=== PATIENT | male | born 1985 | race Caucasian/White ===

== ENCOUNTER 2017-07-16 15:40 | Emergency (ER) | payer BC ==
--- NOTE | 2017-07-16 16:09 | EDM.PDOC ---
ED HPI GENERAL MEDICAL PROBLEM - General Chief Complaint: Back Pain or Injury Stated Complaint: HIGH BLOOD PRESSURE Time Seen by Provider: 07/16/17 15:48 Source of Information: Reports: Patient History Limitations: Reports: No Limitations - History of Present Illness INITIAL COMMENTS - FREE TEXT/NARRATIVE: 31 y/o M sent from walk in clinic for painful rash on L chest/back. Started about 3-4 days ago. Located on left mid chest area and wraps around to his back. No provoking factor. No hx similar symptoms. No additional rash. Rash is painful/burning. Notices it more at night. During the day the pain is tolerable. Worse with touch. No fever. Also concerned about his blood pressure being high. He's supposed to be taking lisinopril but hasn't been taking it regularly. Apparently clinic provider was concerned about his high blood pressure and wanted this evaluated in the ED. No chest pain (apart from that which is localized to rash), SOB, or neurological symptoms. Back Pain Score (Numeric/FACES): 3 - Related Data Allergies Allergy/AdvReac Type Severity Reaction Status Date / Time No Known Allergies Allergy Verified 07/16/17 15:53 Home Meds: Home Meds Ibuprofen 800 mg PO TID PRN #40 tablet 07/16/17 [Rx] Lisinopril 10 mg PO DAILY 07/16/17 [History] Lisinopril 20 mg PO DAILY #30 tablet 07/16/17 [Rx] PARoxetine [Paxil] 20 mg PO DAILY 07/16/17 [History] oxyCODONE 5 mg PO QID PRN #18 tab 07/16/17 [Rx] valACYclovir HCl [Valacyclovir] 1,000 mg PO TID #21 tablet 07/16/17 [Rx] Past Medical History Cardiovascular History: Reports: Hypertension Psychiatric History: Reports: Anxiety, Panic Attack - Infectious Disease History Infectious Disease History: Reports: Chicken Pox - Past Surgical History GI Surgical History: Reports: Hernia Repair/Other Male Surgical History: Reports: Other (See Below) Other Male Surgeries/Procedures: donated left kidney 2005 Social & Family History - Tobacco Use Smoking Status *Q: Former Smoker Used Tobacco, but Quit: Yes Month/Year Tobacco Last Used: 4 months ago - Caffeine Use Caffeine Use: Reports: Coffee - Recreational Drug Use Recreational Drug Use: No ED ROS GENERAL - Review of Systems Review Of Systems: See Below Constitutional: Denies: Fever HEENT: Reports: No Symptoms Respiratory: Denies: Shortness of Breath Cardiovascular: Denies: Chest Pain Endocrine: Reports: No Symptoms GI/Abdominal: Denies: Abdominal Pain Skin: Reports: Rash Neurological: Denies: Confusion Psychiatric: Reports: No Symptoms ED EXAM, UPPER BACK/NECK PAIN - Physical Exam Exam: See Below Exam Limited By: No Limitations General Appearance: Alert, WD/WN, No Apparent Distress Eye Exam: Bilateral Eye: Normal Inspection Ears Exam: Normal External Exam Nose Exam: Normal Inspection Throat/Mouth Exam: Normal Inspection, Normal Voice, No Airway Compromise Head Exam: Atraumatic, Normocephalic Cardiovascular/Respiratory: Regular Rate, Rhythm, No M/R/G, Normal Peripheral Pulses, Normal Breath Sounds, No Respiratory Distress Back Exam: Other (+zoster-like rash on L anterior chest wall and L back area approx T5 distribution with confluent erythema and few scattered vesicles ) Neurologic: No Motor/Sensory Deficits, Normal Mood/Affect, Oriented x 3 Course - Vital Signs Last Recorded V/S: Last Vital Signs Temp 36.6 C 07/16/17 15:49 Pulse 111 H 07/16/17 15:49 Resp 18 07/16/17 15:49 BP 177/142 H 07/16/17 15:49 Pulse Ox 96 07/16/17 15:49 - Orders/Labs/Meds Meds: Medications Discontinued Medications Generic Name Dose Route Start Last Admin Trade Name Freq PRN Reason Stop Dose Admin Valacyclovir HCl 1,000 mg 07/16/17 16:15 Valtrex PO DAILY CHARLI Valacyclovir HCl Confirm 07/16/17 16:19 07/16/17 16:18 Valtrex Administered 07/16/17 16:20 Not Given Dose 1,000 mg .ROUTE .STK-MED ONE Valacyclovir HCl 1,000 mg 07/16/17 16:15 07/16/17 16:17 Valtrex PO 07/16/17 16:16 1,000 mg ONETIME ONE Administration - Re-Assessments/Exams Free Text/Narrative Re-Assessment/Exam: 07/16/17 18:57 Rash consistent with herpes zoster, will treat. Discussed pain control options. Meanwhile, BP is elevated but he is asymptomatic, therefore no indication for ED workup or treatment. Advised him to restart his home meds and keep a log and f/u with PCP for further care. Discussed return precautions. Departure - Departure Time of Disposition: 17:00 Disposition: Home, Self-Care 01 Clinical Impression: Herpes zoster Qualifiers: Herpes zoster complications: without complications Qualified Code(s): B02.9 - Zoster without complications High blood pressure Qualifiers: Hypertension type: essential hypertension Qualified Code(s): I10 - Essential ( primary) hypertension - Discharge Information Prescriptions: Ibuprofen 800 mg PO TID PRN #40 tablet PRN Reason: Pain Lisinopril 20 mg PO DAILY #30 tablet oxyCODONE 5 mg PO QID PRN #18 tab PRN Reason: Pain valACYclovir HCl [Valacyclovir] 1,000 mg PO TID #21 tablet Instructions: Shingles, [id number] Referrals: Nguyễn Avery MD [Primary Care Provider] - Forms: ED Department Discharge Additional Instructions: 1. Check blood pressure daily. If consistently 140 or higher (top number) increase lisinopril to 20mg daily. Follow up with your primary doctor for further recommendations. 2. Take ibuprofen as prescribed and acetaminophen according to bottle directions for pain. Take oxycodone as needed for severe pain. No driving/ operating machinery while taking oxycodone as it may make you sleepy or confused. Take the lowest amount of this medication to adequately control your pain - it is addictive when used long-term. 3. Return to the ED for any new/worsening concerning symptoms, such as fever, severe pain, difficulty breathing, or other concerning symptoms.
[2017-07-16] MEDS ORDERED: valACYclovir 1,000 MG Tab PO SCH (16:15)
[2017-07-16] MEDS ORDERED: valACYclovir 500 MG Tab PO ONE (16:15)
[2017-07-16] MEDS ORDERED: valACYclovir 500 MG Tab ONE (16:19)
== END 2017-07-16 16:55 | disposition home or self-care (01) ==
LOC: JD.ED 15:40
DX: B02.9 Zoster without complications (principal); I10 Essential (primary) hypertension; Z87.891 Personal history of nicotine dependence; Z79.899 Other long term (current) drug therapy
CPT/HCPCS: 99283; A9270